=== PATIENT | female | born 1985 | race Caucasian/White ===

== ENCOUNTER 2022-10-17 10:24 | Emergency (ER) | payer SELFPAY ==
[~2022-10-17] VITALS: Ht 175.3 cm; Wt 46.3 kg
[2022-10-17 11:54] LABS: Basophils # (auto) 0 10 ^3/uL (0-0.2); Basophils % (auto) 0.6 % (0.0-2.0); Eosinophils # (auto) 0.1 10 ^3/uL (0-0.8); Eosinophils % (auto) 1.7 % (0.0-7.0); Hematocrit 40.3 % (36.0-46.0); Hemoglobin 13.9 g/dL (12.2-16.2); Lymphocytes # (auto) 2.5 10 ^3/uL (0.4-5.4); Lymphocytes % (auto) 46.7 % (10.0-50.0); Mean Corpuscular Hemoglobin 29.6 pg (28.0-32.0); Mean Corpuscular Hgb Conc. 34.4 g/dL (32.0-36.0); Monocytes # (auto) 0.3 10 ^3/uL (0-1.3); Monocytes % (auto) 4.9 % (0.0-12.0); Neutrophils # (auto) 2.4 10 ^3/uL (1.6-8.6); Neutrophils % (auto) 46.1 % (37.0-80.0); Nucleated Red Blood Cells % 0.1 %; Red Blood Cells 4.69 10^6/uL (4.0-5.20); Red Cell Distribution Width 12.7 % (11.8-14.3); White Blood Cell 5.3 10^3/uL (4.4-10.8)
[2022-10-17 12:46] LABS: Alanine Aminotransferase 25 U/L (13-56); Albumin 4.1 g/dL (3.4-5.0); Anion Gap 8 (5-15); BUN/Creatinine Ratio 18.5 (10.0-20.0); Blood Alcohol < 3.0 mg/dL (<10); Blood Urea Nitrogen 20 mg/dL (7-18); Carbon Dioxide 23 mmol/L (21-32); Chloride 108 mmol/L (98-107); GFR African American 74 mL/min; GFR Non-African American 61 mL/min; Glucose 109 mg/dL (74-106); Potassium 3.4 mmol/L (3.5-5.1); Sodium 139 mmol/L (136-145)
[2022-10-17 12:49] LABS: Alkaline Phosphatase 47 U/L (45-117); Aspartate Aminotransferase 27 U/L (15-37); Bilirubin, Total 0.7 mg/dL (0.2-1.0); Total Protein 7.7 g/dL (6.4-8.2)
[2022-10-17 13:02] LABS: Salicylate < 1.7 mg/dL (2.8-20.0)
[2022-10-17 13:10] LABS: Acetaminophen < 2.0 ug/mL (10-30)
[2022-10-17 15:15] VITALS: TEMP 97.8
[2022-10-17 17:00] VITALS: BP 94/56; PULSE 80; RESP 19; O2SAT 95
[2022-10-17 17:28] LABS: Alcohol, Urine < 3.0 mg/dL (0-10)
[2022-10-17 18:23] LABS: Amphetamine Screen, Urine POSITIVE (NEGATIVE); Barbiturate Scree,Urine NEGATIVE (NEGATIVE); Benzodiazephine Screen, Urine NEGATIVE (NEGATIVE); Cannabinoid Screen, Urine NEGATIVE (NEGATIVE); Cocaine Screen, Urine NEGATIVE (NEGATIVE); Opiate Scree,Urine NEGATIVE (NEGATIVE); Phencyclidine Screen, Urine NEGATIVE (NEGATIVE)
== END 2022-10-17 18:06 | disposition home or self-care (01) ==
LOC: EDBD 10:24 → ER 10:24
DX: R40.4 Transient alteration of awareness (principal); R10.2 Pelvic and perineal pain; F19.10 Other psychoactive substance abuse, uncomplicated; G03.9 Meningitis, unspecified; Z98.890 Other specified postprocedural states; Z87.891 Personal history of nicotine dependence; Z59.00 Homelessness unspecified
CPT/HCPCS: 36415; 71045; 80053; 80307; 80320; 80329; 81025; 84702; 85025; 93005